=== PATIENT | male | born 1970 | race Caucasian/White ===

== ENCOUNTER 2016-05-14 11:25 | Emergency (ER) | payer MEDICAID ==
[~2016-05-14] VITALS: Ht 160 cm; Wt 80.0 kg
[2016-05-14 11:27] VITALS: Ht 160 cm; Wt 80.0 kg
[2016-05-14] MEDS ORDERED: KETOROLAC 30 MG INJ IM STA (11:50)
--- NOTE | 2016-05-14 11:57 | ERD ---
ER Documentation Chief Complaint Date/Time DATE: 05/14/16 TIME: 11:52 Chief Complaint hx gout ,has right foot pain HPI This 45-year-old male who presents to the emergency department today complaining of right foot pain. Patient states he does have a history of gout and was seen approximately 1 month ago at [facility]. States that he had not had a gout flare prior to that for 8 months to a year. States he thinks he had a fever last night and is complaining of a sore throat. ROS All systems reviewed and are negative except as per history of present illness. Medications Home Meds Active Scripts Indomethacin* (Indocin*) 25 Mg Capsule, 25 MG PO Q6, #20 CAP Prov:LUCAS SIERRA PA-C 05/14/16 Colchicine* (Colcrys*) 0.6 Mg Tablet, 0.6 MG PO BID for 3 Days, TAB Prov:LUCAS SIERRAC 05/14/16 Discontinued Scripts Indomethacin* (Indocin*) 25 Mg Capsule, 25 MG PO Q6 for 20 Days, CAP Prov:LUCAS SIERRAC 05/14/16 Allergies Allergies: Coded Allergies: No Known Allergy (Unverified , 01/09/13) PMhx/Soc History of Surgery: Yes (SHOUJLDER, AND KNEE SURGERY) Hx Alcohol Use: No Hx Substance Use: No Hx Tobacco Use: Yes Physical Exam Vitals Vital Signs Date Time Temp Pulse Resp B/P Pulse Ox O2 Delivery O2 Flow Rate FiO2 05/14/16 11:27 98.1 94 18 117/76 99 Physical Exam Const: No acute distress Head: Atraumatic Eyes: Normal Conjunctiva ENT: Normal External Ears, Nose and Mouth. Throat no erythema no exudate Neck: Full range of motion..~ No meningismus. Resp: Clear to auscultation bilaterally Cardio: Regular rate and rhythm, no murmurs Abd: Soft, non tender, non distended. Normal bowel sounds Skin: No petechiae or rashes MSK: Left foot with no obvious deformity. Tenderness to palpation right great toe and ankle joint. Mild warmth. No erythema. Unable to assess range of motion secondary to pain. Pulses 2+. Distal neurovascularly intact. Neur: Awake and alert Psych: Normal Mood and Affect Results 24 hrs Current Medications Medications (Trade) Dose Ordered Sig/Nelly Route PRN Reason Start Time Stop Time Status Last Admin Dose Admin Ketorolac Tromethamine (Toradol) 30 mg ONCE STAT IM 05/14/16 11:50 05/14/16 11:52 DC Dexamethasone (Decadron) 10 mg ONCE ONCE IM 05/14/16 12:00 05/14/16 12:01 DC Procedures/MDM This 45-year-old male who presents the emergency department today for a gout flare. Patient has been seen here multiple times in the past for gout. He has not been seen here for 2 years however patient indicated that he had been at [facility] 1 month ago. Patient does not have a primary care physician currently. Patient is afebrile and otherwise well-appearing. The remainder of his exam is benign. There is mild warmth over the patient's toe however no erythema. I do not feel the patient requires x-rays at this time. I have low suspicion for septic joint, deep space infection, cellulitis, osteomyelitis. Patient was given Toradol, Decadron here in the emergency department. I will discharge him home with indomethacin and colchicine. Patient already came to the emergency room with crutches. Patient was instructed to get a primary care physician so that he can be managed appropriately. At this time the patient is stable for discharge and outpatient management. Patient should follow up with their PCP in the next 1-2 days. They may return to the emergency department sooner for any persistent or worsening of symptoms. Patient understood and agreed with the plan. Departure Diagnosis: Primary Impression: Foot pain Laterality: right Qualified Code: M79.671 - Right foot pain Condition: LUCAS Guerra PA-C May 14, 2016 11:57
[2016-05-14] MEDS ORDERED: DEXAMETHASONE 10 MG/ML 1 ML INJ IM ONE (12:00)
[2016-05-14] MEDS ORDERED: COLC0.6T6 PO (12:01)
[2016-05-14] MEDS ORDERED: INDO25CA25 PO ×2 (12:02→12:03)
== END 2016-05-14 12:38 | disposition home or self-care (01) ==
LOC: FTE 11:25
DX: M79.671 Pain in right foot (principal)
CPT/HCPCS: J1100; J1885; 96372

== ENCOUNTER 2016-10-04 13:07 | Emergency (ER) | payer MEDICAID ==
[~2016-10-04] VITALS: Ht 165.1 cm; Wt 71.5 kg
[~2016-10-04 13:07] MED LIST: COLC0.6T6 PO; INDO25CA25 PO
[2016-10-04 13:20] VITALS: Ht 165.1 cm; Wt 71.5 kg
[2016-10-04] MEDS ORDERED: HYDR-906 PO (14:07)
[2016-10-04] MEDS ORDERED: ALLO100T PO (14:07)
[2016-10-04] MEDS ORDERED: COLC0.6T6 PO (14:07)
--- NOTE | 2016-10-04 14:20 | ERD ---
ER Documentation Chief Complaint Date/Time DATE: 10/04/16 TIME: 14:15 Chief Complaint elbow pain, ankle pain HPI 45-year-old male with history of gout presents with right elbow, right ankle pain 4 days. He states that there has been some swelling to the area that is getting better over the last few days. He reports that he used to take allopurinol as well as colchicine but the last time was 6 months ago when he had an attack. At this time he has achy pain, feels like his usual gout. He denies any injuries or fevers or chills. He mistakenly that shoulder at triage however his only complaints are elbow and ankle pain ROS All systems reviewed and are negative except as per history of present illness. Medications Home Meds Active Scripts Allopurinol* (Allopurinol*) 100 Mg Tablet, 100 MG PO DAILY, #30 TAB Prov:JEANETTE VIRK PA-C 10/04/16 Hydrocodone/Acetaminophen (Girard 5-325 Tablet) 1 Each Tablet, 1 EACH PO Q6, #7 TAB Prov:JEANETTE VIRK PA-C 10/04/16 Colchicine* (Colcrys*) 0.6 Mg Tablet, 0.6 MG PO as directed, #2 TAB Prov:JEANETTE VIRK PA-C 10/04/16 Indomethacin* (Indocin*) 25 Mg Capsule, 25 MG PO Q6, #20 CAP Prov:LUCAS SIERRA PA-C 05/14/16 Colchicine* (Colcrys*) 0.6 Mg Tablet, 0.6 MG PO BID for 3 Days, TAB Prov:LUCAS SIERRA PA-C 05/14/16 Allergies Allergies: Coded Allergies: No Known Allergy (Unverified , 01/09/13) PMhx/Soc History of Surgery: Yes (SHOUJLDER, AND KNEE SURGERY) Hx Miscellaneous Medical Probl: Yes (pain/gerd; gout) Hx Alcohol Use: No Hx Substance Use: No Hx Tobacco Use: Yes Physical Exam Vitals Vital Signs Date Time Temp Pulse Resp B/P Pulse Ox O2 Delivery O2 Flow Rate FiO2 10/04/16 13:20 98.2 62 18 136/66 100 Physical Exam General: Well-developed, well-nourished. The patient appears in no acute distress. HEENT: Head is normocephalic, atraumatic. No scleral icterus. Neck: Supple. Nontender. Lungs: Clear to auscultation. Normal air movement. Heart: Regular rate and rhythm. S1 and S2 are normal. No murmurs, gallops, or rubs. Abdomen: Nondistended. Extremities: Mild medial right elbow swelling, there is no crepitus, patient is able to flex and extend. There is no lymphatic streaking. Patient has full range of motion to the right ankle, no bony deformities, no ecchymosis. Neurologic: Alert and oriented 3. No focal deficits. Skin: Normal turgor. No rash or lesions. Results 24 hrs Current Medications Medications (Trade) Dose Ordered Sig/Nelly Route PRN Reason Start Time Stop Time Status Last Admin Dose Admin Colchicine (Colchicine) 1.2 mg ONCE ONCE PO 10/04/16 14:30 10/04/16 14:31 Procedures/MDM ED course: Patient was given colchicine. Medical decision makin-year-old male presents with right elbow and right ankle pain, consistent with gout. Patient's history includes gout and he reports that his pain is very similar in the presentation. He does have some swelling, but has good range of motion, I do not see signs of trauma, or signs of septic arthritis or osteomyelitis. He was given a dose of colchicine here, will be given colchicine for harm as well as a short course of Girard. He was advised to start allopurinol, after symptoms present Departure Diagnosis: Primary Impression: Gout Condition: Good Patient Instructions: Treating Gout Attacks JEANETTE VIRK PA-C Oct 04, 2016 14:19
[2016-10-04] MEDS ORDERED: COLCHICINE 0.6 MG TAB PO ONE (14:30)
[2016-10-04 15:03] VITALS: BP 128/71; PULSE 73; RESP 18; TEMP 98
== END 2016-10-04 15:05 | disposition home or self-care (01) ==
LOC: FTE 13:07
DX: M10.9 Gout, unspecified (principal); Z87.891 Personal history of nicotine dependence
CPT/HCPCS: Z7502; Z7610; 99284